=== PATIENT | female | born 1975 | race Two or more races ===

== ENCOUNTER 2024-08-08 17:45 | Emergency (ER) | payer MEDICARE, MEDICAID ==
[~2024-08-08] VITALS: Ht 160 cm; Wt 72.5 kg
[2024-08-08 18:05] VITALS: BP 126/86; PULSE 111; RESP 16; TEMP 99.3; O2SAT 98
[2024-08-08] MEDS ORDERED: IBUP-1456 PO (19:16)
== END 2024-08-08 20:25 | disposition home or self-care (01) ==
LOC: ER 17:45
DX: S93.602A Unspecified sprain of left foot, initial encounter (principal); I10 Essential (primary) hypertension; E11.9 Type 2 diabetes mellitus without complications; G80.9 Cerebral palsy, unspecified; X58.XXXA Exposure to other specified factors, initial encounter; Y93.89 Activity, other specified; Y92.89 Other specified places as the place of occurrence of the external cause; Y99.8 Other external cause status
CPT/HCPCS: 73630